=== PATIENT | female | born 1970 | race Caucasian/White ===

== ENCOUNTER 2018-08-25 13:37 | Emergency (ER) | payer BC ==
[~2018-08-25] VITALS: Ht 154.9 cm; Wt 83.9 kg
[2018-08-25] MEDS ORDERED: HYDROCHLOROTHIA25 MG (14:20)
[2018-08-25] MEDS ORDERED: METFORMIN HCL500 MG (14:20)
[2018-08-25] MEDS ORDERED: NORVASC5 MG (14:20)
[2018-08-25] MEDS ORDERED: PERCOCET 5-3251 EACH PO ×2 (20:46→20:56)
[2018-08-25] MEDS ORDERED: KETO10TA2 PO ×2 (20:46→20:56)
[2018-08-25] MEDS ORDERED: ORPHENADRINE C100 MG PO (20:56)
[2018-08-26] MEDS ORDERED: NORVASC5 MG PO (20:39)
== END 2018-08-25 21:17 | disposition home or self-care (01) ==
LOC: ER 13:37
DX: M54.5 Low back pain (principal); R10.31 Right lower quadrant pain; R10.32 Left lower quadrant pain

== ENCOUNTER 2018-08-26 20:12 | Emergency (ER) | payer BC ==
[~2018-08-26] VITALS: Ht 154.9 cm; Wt 86.2 kg
[~2018-08-26 20:12] MED LIST: HYDROCHLOROTHIA25 MG; KETO10TA2 PO; METFORMIN HCL500 MG; NORVASC5 MG; ORPHENADRINE C100 MG PO; PERCOCET 5-3251 EACH PO
[2018-08-26] MEDS ORDERED: NORVASC5 MG PO (20:39)
[2018-08-27] MEDS ORDERED: KETO10TA2 PO (00:52)
[2018-08-27] MEDS ORDERED: SKELAXIN800 MG PO (00:52)
== END 2018-08-27 01:15 | disposition home or self-care (01) ==
LOC: ER 20:12
DX: R42 Dizziness and giddiness (principal); T39.1X5A Adverse effect of 4-Aminophenol derivatives, initial encounter